=== PATIENT | male | born 1995 | race Hispanic/Latino ===

== ENCOUNTER 2021-01-05 21:04 | Inpatient (IN) | payer SELFPAY ==
[~2021-01-05 21:04] MED LIST: Iopamidol-370 76% 500 ML 1 ML ONE
[2021-01-05 21:40] LABS: #Basophils 0.1 thou/uL (0.0-0.2); #Eosinphils 0.3 thou/uL (0.0-0.7); #Lymphocytes 1.9 thou/uL (1.20-3.40); #Monocytes 0.9 thou/uL (0.11-0.59); #Neutrophils 6.3 thou/uL (1.40-6.50); %Basophils 0.8 % (0.0-1.0); %Eosinophils 3.4 % (0.0-10.0); %Monocytes 9.5 % (0.0-10.0); %Neutrophils 66.3 % (42.0-75.0); Hemoglobin 16.8 g/dL (14.0-18.0); Mean Corpuscular HGB CONC 35.6 g/dL (32.0-36.0); Mean Corpuscular Hemoglobin 32.2 pg (27.0-31.0); Mean Corpuscular Volume 90.4 fL (78.0-98.0); Mean Platelet Volume 9.7 fL (7.4-10.4); Platelet Count 183 thou/uL (130-400); RBC Distribution Width 10.9 % (11.5-14.5); Red Blood Cell (RBC) Count 5.23 mill/uL (4.70-6.10); White Blood Cell (WBC) Count 9.4 thou/uL (4.8-10.8)
[2021-01-05 22:01] LABS: ALT (SGPT) 55 U/L (8-55); AST (SGOT) 20 U/L (5-34); Albumin 4.3 g/dL (3.5-5.0); Alcohol Less than 10 mg/dL (Less than 10); Alkaline Phosphatase 162 U/L (40-110); Anion Gap 16 mmol/L (10-20); BUN (Urea Nitrogen) 12 mg/dL (8.9-20.6); Bilirubin, Total 1.3 mg/dL (0.2-1.2); Calc. Creatinine Clearance 0 mL/min (70-130); Calcium 8.8 mg/dL (7.8-10.44); Carbon Dioxide 22 mmol/L (22-29); Chloride 93 mmol/L (98-107); Globulin 3.1 g/dL (2.4-3.5); Potassium 3.8 mmol/L (3.5-5.1); Protein, Total 7.4 g/dL (6.0-8.3); Salicylate Less than 8.0 mg/dL (15.0-30.0); Sodium 127 mmol/L (136-145)
[2021-01-05 22:03] LABS: Glucose 681 mg/dL (70-105)
[2021-01-05] MEDS ORDERED: cefTRIAXone\\ROCEPHIN 2 GM VIAL ONE ×2 (23:35→23:55)
[2021-01-06] MEDS ORDERED: Azithromycin 500 MG VIAL ONE (00:09)
[2021-01-06 00:49] LABS: SARS-CoV-2 NAA Rapid Test Not Detected (NotDetected)
[2021-01-06] MEDS ORDERED: Acetaminophen 325 MG TAB PO PRN (00:59)
[2021-01-06] MEDS ORDERED: Ondansetron PF 4 MG/2 ML Vial IVP PRN (00:59)
[2021-01-06] MEDS ORDERED: Dextrose 5% in Water 1,000 ML IV PRN (00:59)
[2021-01-06] MEDS ORDERED: Dextrose 50% Abboject 50 ML SYRINGE SLOW IVP PRN (00:59)
[2021-01-06] MEDS ORDERED: Ondansetron ODT 4 MG TAB PO PRN (00:59)
[2021-01-06] MEDS ORDERED: Piperacillin/Tazobactam 3.375 GM in Sodium Chloride 0.9% 100 ML IVPB SCH (02:00)
[2021-01-06 02:24] VITALS: BMI 24.8
[2021-01-06] MEDS ORDERED: VANCOMYCIN 1.25 GM/250 ML BAG IVPB SCH (03:00)
[2021-01-06] MEDS: HumaLOG 300 UNITS/3 ML VIAL SC PRN ×3 (05:42→17:47)
[2021-01-06 06:11] LABS: #Basophils 0.1 thou/uL (0.0-0.2); #Eosinphils 0.4 thou/uL (0.0-0.7); #Lymphocytes 1.7 thou/uL (1.20-3.40); #Neutrophils 4.6 thou/uL (1.40-6.50); %Basophils 0.8 % (0.0-1.0); %Eosinophils 5.3 % (0.0-10.0); %Lymphocytes 21.9 % (21.0-51.0); %Monocytes 13.1 % (0.0-10.0); %Neutrophils 58.9 % (42.0-75.0); Hemoglobin 15.9 g/dL (14.0-18.0); Mean Corpuscular HGB CONC 33.9 g/dL (32.0-36.0); Mean Corpuscular Volume 91.4 fL (78.0-98.0); Mean Platelet Volume 9.2 fL (7.4-10.4); Platelet Count 168 thou/uL (130-400); RBC Distribution Width 11.1 % (11.5-14.5); Red Blood Cell (RBC) Count 5.13 mill/uL (4.70-6.10); White Blood Cell (WBC) Count 7.7 thou/uL (4.8-10.8)
[2021-01-06 06:32] LABS: Anion Gap 13 mmol/L (10-20); BUN (Urea Nitrogen) 12 mg/dL (8.9-20.6); Calc. Creatinine Clearance 150 mL/min (70-130); Calcium 8.9 mg/dL (7.8-10.44); Carbon Dioxide 25 mmol/L (22-29); Chloride 105 mmol/L (98-107); Glucose 245 mg/dL (70-105); Potassium 3.7 mmol/L (3.5-5.1); Sodium 139 mmol/L (136-145)
[2021-01-06] MEDS: cefTRIAXone\\ROCEPHIN 2 GM in Sodium Chloride 0.9% 100 ML IVPB SCH (08:21)
[2021-01-06 09:08] LABS: HIV (1/2) Antibody/Antigen Non-Reactive (NonReactive); HIV 1/2 INDEX 0.28 S/CO (<1.00); Syphilis Antibody Nonreactive (Nonreactive); Syphilis Antibody Index 0.05 S/CO (<1.00 Non-Reactive)
[2021-01-06] MEDS ORDERED: cefTRIAXone\\ROCEPHIN 1 GM in Sodium Chloride 0.9% 100 ML IVPB SCH (22:00)
[2021-01-06] MEDS: Azithromycin 500 MG in Sodium Chloride 0.9% 250 ML 250 ML IVPB SCH (22:24)
[2021-01-06] MEDS: Insulin Regular 300 UNITS/3 ML VIAL SC PRN (22:24)
[2021-01-07] MEDS: HumaLOG 300 UNITS/3 ML VIAL SC PRN ×3 (06:12→16:28)
[2021-01-07] MEDS: cefTRIAXone\\ROCEPHIN 2 GM in Sodium Chloride 0.9% 100 ML IVPB SCH (08:42)
[2021-01-07] MEDS: metFORMIN 500 MG TAB PO SCH ×2 (15:03→20:55)
[2021-01-07] MEDS: Insulin Regular 300 UNITS/3 ML VIAL SC PRN (20:57)
[2021-01-07] MEDS: Azithromycin 500 MG in Sodium Chloride 0.9% 250 ML 250 ML IVPB SCH (20:57)
[2021-01-08] MEDS: HumaLOG 300 UNITS/3 ML VIAL SC PRN ×2 (06:18→11:34)
[2021-01-08] MEDS: cefTRIAXone\\ROCEPHIN 2 GM in Sodium Chloride 0.9% 100 ML IVPB SCH (07:51)
[2021-01-08] MEDS: metFORMIN 500 MG TAB PO SCH (07:51)
[2021-01-08 12:58] VITALS: BP 122/86; TEMP 97.9
[2021-01-09 08:16] LABS: QuantiFERON-TB Gold Plus Negative (Negative)
== END 2021-01-08 13:00 | disposition home or self-care (01) | DRG 193 ==
LOC: ERS 21:04 → T4-B 23:45
PROVIDERS: ADMIT Student in an Organized Health Care Education/Training Program; ATTEND Internal Medicine
DX: J18.9 Pneumonia, unspecified organism (principal); E11.10 Type 2 diabetes mellitus with ketoacidosis without coma; E87.1 Hypo-osmolality and hyponatremia; F17.210 Nicotine dependence, cigarettes, uncomplicated; R09.02 Hypoxemia; J98.4 Other disorders of lung; Z20.822 Contact with and (suspected) exposure to COVID-19
CPT/HCPCS: 36415; 36416; 71046; 71275; 80048; 80053; 80307; 83036; 83605; 84484; 85025; 86480; 86780; 87040; 87116; 87206; 87389; 93005; 96365; 96367; J0456; J0696; J1815; J2543; J3370; J3490; J7050; Q9967; U0002; U0005